=== PATIENT | male | born 1960 | race Hispanic/Latino ===

== ENCOUNTER 2018-03-06 10:24 | Outpatient (CLI) | payer OTHER | END 2018-03-06 10:25 | disposition home or self-care (01) | LOC: BICULT 10:24 | PROVIDERS: ATTEND Internal Medicine Gastroenterology | DX: Z12.11 Encounter for screening for malignant neoplasm of colon (principal); R10.13 Epigastric pain; K57.32 Diverticulitis of large intestine without perforation or abscess without bleeding; R14.0 Abdominal distension (gaseous); R10.33 Periumbilical pain; K21.9 Gastro-esophageal reflux disease without esophagitis | CPT/HCPCS: 76705 ==

== ENCOUNTER 2023-12-04 14:16 | Outpatient (CLI) | payer OTHER | END 2023-12-04 14:17 | disposition home or self-care (01) | LOC: BICRAD 14:16 | PROVIDERS: ATTEND Nurse Practitioner Family | DX: S93.402A Sprain of unspecified ligament of left ankle, initial encounter (principal); M25.472 Effusion, left ankle; S82.65XA Nondisplaced fracture of lateral malleolus of left fibula, initial encounter for closed fracture; M79.89 Other specified soft tissue disorders ==